=== PATIENT | female | born 1965 | race Caucasian/White ===

== ENCOUNTER 2019-11-15 08:19 | Day surgery (SDC) | payer OTHER ==
[2019-11-11 18:03] VITALS: BMI 29.0
[2019-11-15] MEDS ORDERED: ONDANSETRON 4 MG/2 ML VIAL IVPUSH PRN (09:02)
[2019-11-15] MEDS ORDERED: oxyCODONE HCL 5 MG TABLET PO PRN ×2 (09:02)
[2019-11-15] MEDS ORDERED: LACTATED RINGERS SOLUTION 1,000 ML IV SCH ×2 (09:15→10:45)
[2019-11-15] MEDS ORDERED: SUCCINYLCHOLINE CHLORIDE 200 MG/10 ML SYRINGE ONE (10:40)
[2019-11-15] MEDS ORDERED: PROPOFOL 20 ML ONE ×2 (10:40)
[2019-11-15] MEDS ORDERED: MIDAZOLAM HCL 2 MG/2 ML SINGLE DOSE VIAL ONE (10:41)
[2019-11-15] MEDS ORDERED: BUPIVACAINE HCL/PF 0.25% (2.5MG/ML) 10 ML VIAL IJ ONE (11:25)
[2019-11-15] MEDS ORDERED: ONDANSETRON 4 MG/2 ML VIAL ONE (11:56)
[2019-11-15] MEDS ORDERED: KETOROLAC TROMETHAMINE 30 MG/1 ML VIAL ONE (12:08)
[2019-11-15] MEDS ORDERED: KETOROLAC TROMETHAMINE 30 MG/1 ML VIAL IVPUSH ONE (12:25)
[2019-11-15 13:19] VITALS: TEMP 98.4
[2019-11-15 14:27] VITALS: BP 128/72; PULSE 64
--- NOTE | 2019-11-15 20:54 | OP ---
DATE OF OPERATION: 11/15/2019 LOCATION: [facility]. SURGEON: Cristopher Wilson MD. SOFTWARE MAINTENANCE ENGINEER: THOMAS Frank. PREOPERATIVE DIAGNOSIS: 1. Left knee medial lateral meniscal tear. 2. Left knee cartilage injury. 3. Left knee synovitis. POSTOPERATIVE DIAGNOSIS: 1. Left knee medial lateral meniscal tear. 2. Left knee cartilage injury. 3. Left knee synovitis. PROCEDURE: 1. Left knee arthroscopy, partial meniscectomy medial and lateral meniscus. CPT code 15008. 2. Left knee arthroscopy with chondroplasty and abrasion plasty. CPT code 10786. 3. Left knee arthroscopy synovectomy. CPT code 37323. FINDINGS: 1. Medial meniscus body and posterior horn tear. Central body undersurface 2/3 with extension to the posterior horn going back to the capsule and the central portion of the body, upper 1/3 preserved. 2. Lateral meniscus posterior horn tear/minor and central body tear thinning. 3. Synovitis patellofemoral medial lateral notch area with large medial plical adhesions to the anterior patellofemoral joint. 4. Mild grade 1 to 2 cartilage injury posterior medial femoral condyle with 6 cm x 4 cm grade 2-3 changes anterior medial femoral condyle. 5. ACL and PCL intact. 7. Diffuse grade 1-2 changes lateral joint line. 8. Central grade 1-2 cartilage injury patellofemoral trochlea in central 1/3 with 2 cm x 2 cm grade 4 changes adhesions. PROCEDURE: Informed consent was obtained. The patient came to the operating room, where the lower extremity was prepped and draped in a sterile fashion. A tourniquet was placed on the upper thigh, but not inflated. Using standard arthroscopic technique, a lateral incision and portal was made to allow for introduction of the camera into the suprapatellar bursa. This was then taken to the medial joint line, where under direct visualization, a medial incision and portal was made. Excessive synovium noted in the medial, lateral and patellofemoral and notch area was removed by an upbiter, shaver and Bovie cautery. This was found to bring in inflammatory tissue into the joint surface, a source of pain and dysfunction. Probing of the medial and lateral meniscus found tears, as described in the findings. These were removed with the upbiter and shaver and taken back to a stable rim. Grade 2 to 3 degenerative changes were treated with a chondroplasty, removing all flaking surfaces with low-setting Bovie along the periphery to prevent further flaking. Grade 4 changes, as noted, were treated with an abrasoplasty, creating a bleeding surface at the bone/cartilage interface. Aggressive debridement with shaver/jeanette created bleeding surface. Micro fracture also done when indicated in findings. All areas of the knee were once again reexamined. The knee was then drained and a single suture was placed in all portals. A sterile dressing was placed and the patient was transferred to the recovery room without complication. The PA listed above was present and assisted at surgery. Their presence was absolutely medically necessary for the completion of the procedure. They helped hold the arthroscopy, pass instruments (and implants when indicated) and the procedure could not have been completed without their assistance. CRISTOPHER WILSON M.D. [id number]
--- NOTE | 2019-11-19 16:15 | PATH ---
Surgical Pathology Report Patient Name: SAMIRA COE [facility]. Rec. #: [id number] /Age/Gender: 1965 (Age: 54) / F Account: [id number] Location: [facility] Taken: 11/15/2019 Received: 11/15/2019 Reported: 11/19/2019 Physicians: Cristopher Carrillo M.D. Specimen(s) Received LEFT KNEE SHAVINGS Clinical History Derangement of left knee Final Diagnosis LEFT KNEE SHAVINGS: PORTIONS OF SYNOVIAL TISSUE WITH FOCAL REACTIVE CHANGE. Electronically Signed Tamy Adair M.D. Gross Description Received in formalin, labeled "left knee shavings," is a 4.8 x 4.0 x 0.3 cm. aggregate of mark-yellow soft tissue fragments. A career services representative portion is submitted in one cassette. /11/15/2019 saudi/11/15/2019
== END 2019-11-15 14:00 | disposition home or self-care (01) ==
LOC: FASU 08:19
PROVIDERS: ATTEND Orthopaedic Surgery
PROC: 0SBD4ZZ Excision of Left Knee Joint, Percutaneous Endoscopic Approach (ICD-10-PCS; 2019-11-15)
PROC: 0SBD4ZZ Excision of Left Knee Joint, Percutaneous Endoscopic Approach (ICD-10-PCS; 2019-11-15)
PROC: 0SBD4ZZ Excision of Left Knee Joint, Percutaneous Endoscopic Approach (ICD-10-PCS; principal; 2019-11-15 11:11)
DX: S83.242A Other tear of medial meniscus, current injury, left knee, initial encounter (principal); S83.282A Other tear of lateral meniscus, current injury, left knee, initial encounter; S83.8X2A Sprain of other specified parts of left knee, initial encounter; M65.862 Other synovitis and tenosynovitis, left lower leg; X58.XXXA Exposure to other specified factors, initial encounter; Y93.9 Activity, unspecified; Y92.9 Unspecified place or not applicable
CPT/HCPCS: 88304-TC; 94760